=== PATIENT | male | born 1990 | race Caucasian/White ===

== ENCOUNTER 2022-11-12 04:07 | Day surgery (SDC) | payer OTHER ==
[2022-09-30 14:50] VITALS: BMI 26.9
[2022-11-12] MEDS ORDERED: BUPIVACAINE HCL/PF 0.5% (5MG/ML) 10 ML VIAL ONE ×2 (09:09→09:43)
[2022-11-12] MEDS ORDERED: BUPIVACAINE LIPOSOME/PF (EXPAREL) 266 MG/20 ML VIAL ONE (09:43)
[2022-11-12] MEDS ORDERED: MIDAZOLAM HCL 2 MG/2 ML SINGLE DOSE VIAL ONE (09:44)
[2022-11-12] MEDS ORDERED: ONDANSETRON 4 MG/2 ML VIAL IVPUSH PRN (10:23)
[2022-11-12] MEDS ORDERED: oxyCODONE HCL 5 MG TABLET PO PRN ×2 (10:23)
[2022-11-12] MEDS ORDERED: LACTATED RINGERS SOLUTION 1,000 ML IV SCH (10:30)
[2022-11-12] MEDS ORDERED: ceFAZolin SODIUM 1 GM VIAL IVPB ONE (10:42)
[2022-11-12] MEDS ORDERED: PROPOFOL 60 ML ONE (10:43)
[2022-11-12] MEDS ORDERED: ceFAZolin SODIUM 1 GM VIAL ONE (10:52)
[2022-11-12 14:15] VITALS: RESP 18; TEMP 96
[2022-11-12 15:41] VITALS: BP 117/73; PULSE 60
== END 2022-11-12 16:15 | disposition home or self-care (01) ==
LOC: JASU-SURG 04:07
PROVIDERS: ATTEND Orthopaedic Surgery
PROC: 0MS Bursae and Ligaments, Reposition (ICD-10-PCS; principal; 2022-11-12 10:15)
DX: S83.512A Sprain of anterior cruciate ligament of left knee, initial encounter (principal); X58.XXXA Exposure to other specified factors, initial encounter; Y93.9 Activity, unspecified; Y92.9 Unspecified place or not applicable; Y99.9 Unspecified external cause status
CPT/HCPCS: 29888; C1713; 94760; 97116-GP